=== PATIENT | female | born 1990 | race African-American/Black ===

== ENCOUNTER 2019-07-29 19:55 | Emergency (ER) | payer MEDICAID ==
[~2019-07-29] VITALS: Ht 170.2 cm; Wt 100.2 kg
[2019-07-29 20:01] VITALS: Ht 170.2 cm; Wt 100.2 kg
[2019-07-29 20:58] VITALS: BP 125/61
== END 2019-07-29 20:58 | disposition home or self-care (01) ==
LOC: ED 19:55
DX: N76.0 Acute vaginitis (principal)
CPT/HCPCS: 87491; 87591

== ENCOUNTER 2019-10-23 10:29 | Emergency (ER) | payer MEDICAID ==
[~2019-10-23] VITALS: Ht 170.2 cm; Wt 100.2 kg
[2019-10-23 10:41] VITALS: Ht 170.2 cm; Wt 100.2 kg
[2019-10-23 14:10] VITALS: BP 117/79
== END 2019-10-23 14:33 | disposition home or self-care (01) ==
LOC: ED 10:29
DX: N76.0 Acute vaginitis (principal)
CPT/HCPCS: 87491; 87591

== ENCOUNTER 2020-01-03 14:13 | Emergency (ER) | payer MEDICAID ==
[~2020-01-03] VITALS: Ht 170.2 cm; Wt 98.0 kg
[2020-01-03 14:44] VITALS: BP 134/74; Ht 170.2 cm; Wt 98.0 kg
== END 2020-01-03 17:00 | disposition left against medical advice (07) ==
LOC: ED 14:13
DX: S63.613A Unspecified sprain of left middle finger, initial encounter (principal); W22.8XXA Striking against or struck by other objects, initial encounter; Y93.89 Activity, other specified; Y92.89 Other specified places as the place of occurrence of the external cause; Y99.8 Other external cause status

== ENCOUNTER 2020-04-15 12:03 | Emergency (ER) | payer MEDICAID ==
[~2020-04-15] VITALS: Ht 170.2 cm; Wt 101.6 kg
[2020-04-15 12:13] VITALS: BP 109/75; Ht 170.2 cm; Wt 101.6 kg
[2020-04-15 13:48] LABS: microscopic required? YES; urine erythrocyte 1+ (NEGATIVE)
== END 2020-04-15 14:42 | disposition home or self-care (01) ==
LOC: ED 12:03
PROVIDERS: Emergency Medicine
DX: N76.0 Acute vaginitis (principal)
CPT/HCPCS: 87491; 87591

== ENCOUNTER 2020-08-23 23:32 | Emergency (ER) | payer MEDICAID ==
[~2020-08-23] VITALS: Ht 170.2 cm; Wt 108.2 kg
[2020-08-23 23:35] VITALS: Ht 170.2 cm; Wt 108.2 kg
[2020-08-24 02:23] VITALS: BP 130/87
== END 2020-08-24 02:23 | disposition home or self-care (01) ==
LOC: ED 23:32
DX: N76.0 Acute vaginitis (principal)
CPT/HCPCS: 87491; 87591

== ENCOUNTER 2020-09-12 20:30 | Emergency (ER) | payer MEDICAID ==
[~2020-09-12] VITALS: Ht 170.2 cm; Wt 109.8 kg
[2020-09-12 20:58] VITALS: Ht 170.2 cm; Wt 109.8 kg
[2020-09-13 00:03] VITALS: BP 126/82
== END 2020-09-13 00:03 | disposition home or self-care (01) ==
LOC: ED 20:30
DX: N89.8 Other specified noninflammatory disorders of vagina (principal)